=== PATIENT | female | born 1950 | race Caucasian/White ===

== ENCOUNTER 2018-12-15 01:11 | Emergency (ER) | payer MEDICARE, OTHER ==
[~2018-12-15] VITALS: Ht 160 cm; Wt 65.5 kg
--- NOTE | 2018-12-15 01:51 | NUR ---
DAUGHTERS GETTING HER UNDRESSED AND GOWNED AND TAKING OFF HER BANDAGES. DAUGHTER SAID THAT THE BOTTOM OF THE DRESS SHE HAS ON SMELLS LIKE TOILET WATER AND IS THINKING THAT SHE HAD DONE THAT BEFORE THEY LEFT [facility].
--- NOTE | 2018-12-15 03:37 | NUR ---
PT IS LYING IN THE BED AND DAUGHTER, FARIDEH, AT BEDSIDE. AWAITING ER MD.
[2018-12-15] MEDS ORDERED: SULF1TAB48 PO (03:58)
[2018-12-15] MEDS ORDERED: sulfamethoxazole/trimethoprim DS (800/160mg) tablet PO ONE (04:00)
[2018-12-15] MEDS ORDERED: naproxen 500mg tablet PO ONE (04:10)
--- NOTE | 2018-12-15 05:01 | NUR ---
PT WITH BP 171/97, GIVEN BACRTUM AND NAPROXIN. PTS WOUNDS CLEANED AND REDRESSED BY DAUGHTER. LABS DRAWN AND STRAIGHT CATHED. PT COOPERATIVE WITH ALL PROCEDURES THUS FAR.
[2018-12-15 05:08] VITALS: BP 177/93
[2018-12-15 05:14] LABS: BASOPHILS # (AUTO) 0.1 X10'3 (0-0.2); EOSINOPHILS # (AUTO) 0.4 X10'3 (0-0.9); EOSINOPHILS % (AUTO) 4.6 % (0-6); HEMATOCRIT 42.1 % (35.0-45.0); HEMOGLOBIN 14.1 g/dl (12.0-16.0); LYMPHOCYTES # (AUTO) 2.1 X10'3 (1.1-4.8); LYMPHOCYTES % (AUTO) 23.3 % (21-51); MEAN CORPUSCULAR HEMOGLOBIN 28.7 PG (27.0-31.0); MEAN CORPUSCULAR HGB CONC 33.5 g/dL (33.0-36.5); MEAN CORPUSCULAR VOLUME 85.7 FL (78-98); MEAN PLATELET VOLUME 8.3 FL (7.4-10.4); MONOCYTES # (AUTO) 0.8 X10'3 (0-0.9); MONOCYTES % (AUTO) 8.4 % (2-12); NEUTROPHILS # (AUTO) 5.6 X10'3 (1.8-7.7); NEUTROPHILS % (AUTO) 62.7 % (42-75); PLATELET COUNT 586 X10'3 (140-440); RED BLOOD COUNT 4.92 X10'6 (4.20-5.60); RED CELL DISTRIBUTION WIDTH 24.6 % (11.5-14.5); WHITE BLOOD COUNT 8.9 X10'3 (4.5-11.0)
[2018-12-15 05:14] LABS: CLARITY,URINE CLEAR (Clear); COLOR,URINE YELLOW (Yellow); GLUCOSE, URINE NEGATIVE (Neg); KETONES,URINE NEGATIVE (Neg); LEUKOCYTE ESTERASE ,URINE NEGATIVE (Neg); NITRITES, URINE NEGATIVE (Neg); OCCULT BLOOD,URINE NEGATIVE (Neg); PROTEIN,URINE NEGATIVE (Neg); UROBILINOGEN,URINE 0.2 E.U/dL (0.2-1.0)
[2018-12-15 05:16] LABS: UA COLLECTION TYPE STRAIGHT CATH
[2018-12-15 05:24] LABS: URINE AMPHETAMINE SCREEN NEGATIVE (Neg); URINE BARBITUATE SCREEN NEGATIVE (Neg); URINE BENZODIAZEPINES SCREEN NEGATIVE (Neg); URINE CANNABINOID SCREEN POSITIVE (Neg); URINE COCAINE SCREEN NEGATIVE (Neg); URINE METHADONE SCREEN NEGATIVE (Neg); URINE OPIATE SCREEN NEGATIVE (Neg); URINE PHENCYCLIDINE SCREEN NEGATIVE (Neg)
[2018-12-15 05:26] LABS: AMMONIA < 10 UMOL/L (11-32)
[2018-12-15 05:29] LABS: LACTIC SEPSIS 1.9 MMOL/L (0.4-2.0)
[2018-12-15 05:38] LABS: ALANINE AMINOTRANSFERASE 26 U/L (12-78); ALBUMIN 3.8 G/DL (3.4-5.0); ALBUMIN/GLOBULIN RATIO 1.1 (1.1-1.5); ALKALINE PHOSPHATASE 104 IU/L (46-116); ANION GAP 11 (8-16); ASPARTATE AMINO TRANSFERASE 24 U/L (10-37); BILIRUBIN,TOTAL 0.5 MG/DL (0.1-1.0); BLOOD UREA NITROGEN 25 MG/DL (7-18); BUN/CREATININE RATIO 29.8 (6.6-38.0); CALCIUM 9.9 MG/DL (8.5-10.1); CHLORIDE 105 MMOL/L (99-107); CREATININE 0.84 MG/DL (0.40-0.90); ETHANOL < 0.010 GM/DL (0.0-0.010); GLUCOSE 96 MG/DL (70-104); POTASSIUM 3.7 MMOL/L (3.5-5.1); SODIUM 145 MMOL/L (135-145); TOTAL CARBON DIOXIDE 29.4 MMOL/L (24-32); TOTAL PROTEIN 7.4 G/DL (6.4-8.2); eGFR 67 ML/MIN
[2018-12-15 07:31] LABS: ANISOCYTOSIS 3+; PLATELET ESTIMATE INCREASED
[2018-12-15 07:32] LABS: ELLIPTOCYTES 1+; LARGE PLATELETS FEW; SCHISTOCYTES FEW
[2018-12-15 07:33] LABS: BURR CELLS FEW
== END 2018-12-15 05:56 | disposition home or self-care (01) ==
LOC: ER 01:12
DX: L97.929 Non-pressure chronic ulcer of unspecified part of left lower leg with unspecified severity (principal); L97.919 Non-pressure chronic ulcer of unspecified part of right lower leg with unspecified severity; L03.116 Cellulitis of left lower limb; F07.0 Personality change due to known physiological condition; F12.90 Cannabis use, unspecified, uncomplicated; Z87.891 Personal history of nicotine dependence; Z88.8 Allergy status to other drugs, medicaments and biological substances
CPT/HCPCS: 36415; 80053; 80305; 80320; 81003; 82140; 83605; 85025; 87040; 99284; P9612

== ENCOUNTER 2019-05-03 12:17 | Emergency (ER) | payer MEDICARE, OTHER ==
[~2019-05-03] VITALS: Ht 160 cm; Wt 65.9 kg
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
[2019-05-03 12:57] LABS: BASOPHILS # (AUTO) 0.1 X10'3 (0-0.2); BASOPHILS % (AUTO) 1.1 % (0-1); EOSINOPHILS # (AUTO) 0.3 X10'3 (0-0.9); EOSINOPHILS % (AUTO) 4.4 % (0-6); HEMOGLOBIN 13.8 g/dl (12.0-16.0); LYMPHOCYTES # (AUTO) 1.8 X10'3 (1.1-4.8); MEAN CORPUSCULAR HEMOGLOBIN 27.8 PG (27.0-31.0); MEAN CORPUSCULAR HGB CONC 33.7 g/dL (33.0-36.5); MEAN CORPUSCULAR VOLUME 82.6 FL (78-98); MONOCYTES # (AUTO) 0.6 X10'3 (0-0.9); MONOCYTES % (AUTO) 8.2 % (2-12); NEUTROPHILS # (AUTO) 4.4 X10'3 (1.8-7.7); NEUTROPHILS % (AUTO) 61.3 % (42-75); PLATELET COUNT 429 X10'3 (140-440); RED BLOOD COUNT 4.97 X10'6 (4.20-5.60); RED CELL DISTRIBUTION WIDTH 26.6 % (11.5-14.5); WHITE BLOOD COUNT 7.2 X10'3 (4.5-11.0)
--- NOTE | 2019-05-03 13:00 | NUR ---
Patient is uncooperative with the admission process. Refuses to answer any questions about herself or her medical history. This information will be passed on to the aerospace quality engineer.
[2019-05-03 13:11] LABS: URINE AMPHETAMINE SCREEN NEGATIVE (Neg); URINE BARBITUATE SCREEN NEGATIVE (Neg); URINE BENZODIAZEPINES SCREEN NEGATIVE (Neg); URINE CANNABINOID SCREEN NEGATIVE (Neg); URINE COCAINE SCREEN NEGATIVE (Neg); URINE METHADONE SCREEN NEGATIVE (Neg); URINE OPIATE SCREEN NEGATIVE (Neg); URINE PHENCYCLIDINE SCREEN NEGATIVE (Neg)
[2019-05-03 13:18] LABS: ALANINE AMINOTRANSFERASE 33 U/L (12-78); ALBUMIN 4.8 G/DL (3.4-5.0); ALBUMIN/GLOBULIN RATIO 1.4 (1.1-1.5); ALKALINE PHOSPHATASE 78 IU/L (46-116); ANION GAP 11 (8-16); ASPARTATE AMINO TRANSFERASE 23 U/L (10-37); BILIRUBIN,TOTAL 1.5 MG/DL (0.1-1.0); BLOOD UREA NITROGEN 14 MG/DL (7-18); BUN/CREATININE RATIO 17.5 (6.6-38.0); CALCIUM 9.7 MG/DL (8.5-10.1); CHLORIDE 110 MMOL/L (99-107); GLUCOSE 92 MG/DL (70-104); SODIUM 146 MMOL/L (135-145); TOTAL CARBON DIOXIDE 24.9 MMOL/L (24-32); TOTAL PROTEIN 8.3 G/DL (6.4-8.2); eGFR 71 ML/MIN
[2019-05-03 13:25] LABS: CLARITY,URINE CLOUDY (Clear); COLOR,URINE YELLOW (Yellow); GLUCOSE, URINE NEGATIVE (Neg); KETONES,URINE NEGATIVE (Neg); LEUKOCYTE ESTERASE ,URINE SMALL (Neg); NITRITES, URINE POSITIVE (Neg); OCCULT BLOOD,URINE NEGATIVE (Neg); PH,URINE 7.5 (4.8-8.0); PROTEIN,URINE NEGATIVE (Neg)
[2019-05-03 13:25] LABS: POTASSIUM 2.8 MMOL/L (3.5-5.1)
[2019-05-03 13:27] LABS: UA COLLECTION TYPE CLN CATCH MIDSTREAM
[2019-05-03 13:28] LABS: HYALINE CASTS 0-3 /LPF (NEGATIVE); SQUAMOUS EPITHELIAL CELL,UR FEW /LPF (FEW)
[2019-05-03 13:31] LABS: BACTERIA,URINE 4+ /HPF (Neg); RBC,URINE 0-2 /HPF (0-2)
[2019-05-03 13:32] LABS: ANISOCYTOSIS 3+; ELLIPTOCYTES FEW; PLATELET ESTIMATE NORMAL; TEAR DROP CELLS FEW
[2019-05-03 13:33] LABS: SCHISTOCYTES FEW
[2019-05-03 13:45] LABS: ETHANOL < 0.010 GM/DL (0.0-0.010)
[2019-05-03] MEDS ORDERED: potassium Cl 20 mEq SR tablet PO SCH (13:45)
[2019-05-03] MEDS ORDERED: ondansetron 4mg rapidly disintigrating tab PO ONE (13:45)
[2019-05-03] MEDS ORDERED: nitrofuran/nitrofuran macrocrysal 100 MG capsule PO SCH (13:45)
[2019-05-03] MEDS ORDERED: normal saline 1000ML IV soln IVB ONE (15:10)
[2019-05-03] MEDS ORDERED: magnesium 2GM in 50ml NS 50 ML IV ONE (15:10)
[2019-05-03] MEDS ORDERED: potassium Cl 10 mEq/100mL bag IV SCH (15:10)
[2019-05-03] MEDS ORDERED: CefTRIAXone 2gm/D5W 50ml 50 ML IV ONE (15:10)
[2019-05-03] MEDS ORDERED: potassium Cl 20 mEq SR tablet PO STA (15:25)
[2019-05-03] MEDS ORDERED: nitrofuran/nitrofuran macrocrysal 100 MG capsule PO ONE (15:25)
--- NOTE | 2019-05-03 15:30 | NUR ---
Lab results revealed patient has a critical potassium level and a urinary tract infection. Patient offered oral medications to address these values. She refused to take her medications and demanded an IV. Dr. Esquivel notified. IV orders given. Patient then refused to have an IV inserted and demanded to have her pills. Pills offered once again and patient took them without event.
[2019-05-03] MEDS ORDERED: TIOT4MIS3 PO (16:11)
[2019-05-03] MEDS ORDERED: PRED5DRO23 RIGHTEYE (16:11)
[2019-05-03] MEDS ORDERED: LORA1TAB PO (16:11)
[2019-05-03] MEDS ORDERED: DORZ10DR10 RIGHTEYE (16:11)
[2019-05-03] MEDS ORDERED: DOCU-148 PO (16:11)
[2019-05-03] MEDS ORDERED: AMLO2.5T2 PO (16:11)
[2019-05-03] MEDS ORDERED: HYDR-4383 PO (16:11)
[2019-05-03] MEDS ORDERED: BUDE0.5A11 NEB (16:11)
[2019-05-03] MEDS ORDERED: MAGN400C PO (16:11)
[2019-05-03] MEDS ORDERED: ACET250T3 PO (16:11)
[2019-05-03] MEDS ORDERED: TRAZ-251 PO (16:11)
[2019-05-03] MEDS ORDERED: BRIM5DRO16 EACHEYE (16:11)
[2019-05-03] MEDS ORDERED: OSC500T PO (16:11)
[2019-05-03] MEDS ORDERED: LORazepam 2 mg/ml vial IM ONE (17:10)
[2019-05-03] MEDS: nicotine 14mg patch - 24hr TD ONE ×2 (17:17→20:30)
[2019-05-03] MEDS ORDERED: LORazepam 1 MG tablet PO PRN (17:20)
[2019-05-03] MEDS ORDERED: HYDROcodone/acetaminophen 5mg/325mg tablet PO PRN (17:20)
--- NOTE | 2019-05-03 17:30 | NUR ---
Got out of bed with the use of her walker, stating her son was calling her from behind the wall. Then began walking in the direction of the exit doors, stating she needed "fresh air and sunshine." Becoming increasingly agitated when staff attempted to redirect her to her bed, yelling " I need a cigarette." Made comfortable in bed. Dr. Esquivel consulted. Orders given for Nicotine patch and Ativan 1 mg. IM Medications given as ordered without event.
--- NOTE | 2019-05-03 17:37 | NUR ---
PT'S COLD MEAT CHEF AT [facility] CALLED FOR PT UPDATE. INFORMED KAIWHAKAHAERE THAT PT IS SAFE, HAS BEEN GIVEN ABX FOR A UTI AND MEDICATION FOR A LOW K+. INFORMED THEM THAT [facility] HAS NOT BEEN TO SEE HER OF YET AND THEY WILL DETERMINE IF PT'S 5150 WILL BE UP HELD OR DISCHARGED BACK TO HER HOME FACILITY. SHOULD PT BE DC ANY TIME SOON, PLEASE CALL HANNY, DISTRICT CAPTAIN OF [employer]; AT
--- NOTE | 2019-05-03 20:47 | NUR ---
found phone number for son "Fredo" on sticky note [phone]
[2019-05-03] MEDS: budesonide 0.5mg/2ml UD nebule IH SCH (20:54)
--- NOTE | 2019-05-03 20:54 | NUR ---
RT at bedside to administer treatment, pt said "can you people just leave me alone" but eventually complied with sitting up in bed.
[2019-05-03] MEDS: dorzolamide/timolol (Cosopt) ophthalmic drops 10ml bottle RIGHTEYE SCH (21:00)
[2019-05-03] MEDS: traZODone 50mg tablet PO SCH (21:00)
[2019-05-03] MEDS: prednisoLONE acetate 1% ophth susp 5ml RIGHTEYE SCH (21:00)
[2019-05-03] MEDS: acetaZOLAMIDE 250mg tablet PO SCH (21:00)
[2019-05-03] MEDS: docusate sod 100mg capsule PO SCH (21:00)
[2019-05-03] MEDS: brimonidine 0.2% 5 ML ophthalmic drops EACHEYE SCH (21:00)
--- NOTE | 2019-05-03 23:23 | NUR ---
pt sleeping on back. resp even/unlabored
--- NOTE | 2019-05-04 02:24 | NUR ---
pt asked for new pants and underwear, she changed on her own. pt sitting up in bed
--- NOTE | 2019-05-04 05:23 | NUR ---
pt used bedside commode independently, however slowly. returned to resting in bed
[2019-05-04] MEDS: magnesium oxide 400mg tablet PO SCH (08:00)
[2019-05-04] MEDS: amLODIPine 5mg tablet PO SCH (08:00)
[2019-05-04] MEDS: dorzolamide/timolol (Cosopt) ophthalmic drops 10ml bottle RIGHTEYE SCH ×3 (08:00→21:00)
[2019-05-04] MEDS: TIOTROPIUM IH SCH ×2 (08:00→10:38)
[2019-05-04] MEDS: brimonidine 0.2% 5 ML ophthalmic drops EACHEYE SCH ×3 (08:00→21:00)
[2019-05-04] MEDS: prednisoLONE acetate 1% ophth susp 5ml RIGHTEYE SCH ×3 (08:00→21:00)
[2019-05-04] MEDS: calcium carbonate 500mg tablet PO SCH (08:00)
[2019-05-04] MEDS: acetaZOLAMIDE 250mg tablet PO SCH ×3 (08:00→21:00)
[2019-05-04] MEDS: [UNRECOGNIZED DRUG - OTHER] IH SCH ×2 (08:00→10:38)
--- NOTE | 2019-05-04 08:03 | NUR ---
patients current blood pressure is 124/78 HR 78, She is refusing all of her medication.
--- NOTE | 2019-05-04 08:08 | NUR ---
Fouzia sepulveda in [facility] - 05/04/19 at 0811 by ERASTO retook blood sugar 129 after dextrose 25 ml IV
--- NOTE | 2019-05-04 08:45 | NUR ---
Patient in bed. family member at bedside
[2019-05-04] MEDS: budesonide 0.5mg/2ml UD nebule IH SCH ×2 (10:37→19:09)
--- NOTE | 2019-05-04 10:57 | NUR ---
patient still refusing to eat; refused RT treatment also, resting in bed
--- NOTE | 2019-05-04 12:08 | NUR ---
patient sleeping. in no distress
--- NOTE | 2019-05-04 14:03 | NUR ---
Patient up walking to the restroom. in no distress. refusing to eat lunch
--- NOTE | 2019-05-04 14:19 | NUR ---
Patient tried leaving. Security was able to get her back into her bed.
--- NOTE | 2019-05-04 15:56 | NUR ---
Patient resting in bed. in no distress
--- NOTE | 2019-05-04 17:11 | NUR ---
patient up and wondering, redirected to her room, wanting to leave
--- NOTE | 2019-05-04 17:53 | NUR ---
norco given for back pain.
--- NOTE | 2019-05-04 18:30 | NUR ---
RECEIVED REPORT FROM VISHNU BOATENG PATIENT WALKED TO THE BATHROOM AND BACK TO BED.
[2019-05-04] MEDS ORDERED: budesonide 0.5mg/2ml UD nebule IH PRN (19:15)
[2019-05-04] MEDS ORDERED: nicotine 14mg patch - 24hr TD ONE (19:15)
--- NOTE | 2019-05-04 20:00 | NUR ---
PATIENT REFUSED TO TAKE ALL MEDICATIONS.
[2019-05-04] MEDS: traZODone 50mg tablet PO SCH (21:00)
[2019-05-04] MEDS: docusate sod 100mg capsule PO SCH (21:00)
--- NOTE | 2019-05-04 21:15 | NUR ---
PATIENT UP TO THE BATHROOM.
--- NOTE | 2019-05-04 23:00 | NUR ---
PATIENT RESTING IN BED WITH EYES CLOSED.
--- NOTE | 2019-05-05 00:30 | NUR ---
PATIENT ASSISTED TO THE BATHROOM AND NACK TO BED.
--- NOTE | 2019-05-05 02:00 | NUR ---
PATIENT RESTING IN BED WITH EYES CLOSED.
--- NOTE | 2019-05-05 03:30 | NUR ---
PATIENT UP TO THE BATHROOM AND BACK TO BED.
--- NOTE | 2019-05-05 05:20 | NUR ---
RESTING IN BED WITH EYES CLOSED.
[2019-05-05] MEDS: brimonidine 0.2% 5 ML ophthalmic drops EACHEYE SCH ×3 (07:53→20:31)
[2019-05-05] MEDS: acetaZOLAMIDE 250mg tablet PO SCH ×3 (07:53→21:00)
[2019-05-05] MEDS: magnesium oxide 400mg tablet PO SCH (07:54)
[2019-05-05] MEDS: amLODIPine 5mg tablet PO SCH (07:54)
[2019-05-05] MEDS: calcium carbonate 500mg tablet PO SCH (07:56)
[2019-05-05] MEDS: dorzolamide/timolol (Cosopt) ophthalmic drops 10ml bottle RIGHTEYE SCH ×3 (07:56→20:31)
[2019-05-05] MEDS: prednisoLONE acetate 1% ophth susp 5ml RIGHTEYE SCH ×3 (07:56→20:31)
--- NOTE | 2019-05-05 13:21 | NUR ---
GIVING NURSE A LUNCH BREAK, PT. IS SLEEPING IN BED AND IS IN NO DISTRESS. WILL CONTINUE TO MONITOR
--- NOTE | 2019-05-05 16:20 | NUR ---
ASSISTED CALLED AND SAID THEY WILL NOT BE ABLE TO TAKE THE PATIENT BACK DUE TO LEVEL OF CARE
--- NOTE | 2019-05-05 17:33 | NUR ---
PT IS STILL REFUSING HER MEDS BUT SHE ATE SOME SNACKS FOR THE FIRST TIME SINCE SHE HAS BEEN HERE
--- NOTE | 2019-05-05 19:00 | NUR ---
Pt received lying in her bed. Friendly upon approach. Pt up to bathroom on her own. Pt ambulating to and from bathroom (over 20yards) without assitance or confusion.
[2019-05-05] MEDS: cephalexin 250mg capsule PO SCH (20:30)
[2019-05-05] MEDS: traZODone 50mg tablet PO SCH (21:00)
[2019-05-05] MEDS: docusate sod 100mg capsule PO SCH (21:00)
--- NOTE | 2019-05-05 21:00 | NUR ---
Pt took some medications, but began to feel real nervous and said its hard for her to trust people and did not take her trazodone, diamox or colace.
--- NOTE | 2019-05-05 23:00 | NUR ---
Pt resting quietly in bed without complaints.
--- NOTE | 2019-05-06 01:00 | NUR ---
Pt up to bathroom without assistance x 1. Pt appears alert and oriented without signs of confusion. Pt returned to bed after using the bathroom, ate some yogurt and returned to trying to sleep.
--- NOTE | 2019-05-06 02:00 | NUR ---
Vandana Ortega KEYBOARD INSTRUMENT TUNER from [facility] ([phone]) called and was concerned that pt had dementia and that she was total care. This nurse clarified that pt was ambulating to the bathroom on her own and feeding herself and that she appeared; through, the limited interaction due to sleep, that she was oriented. She stated she would have to check with either Dr. Landaverde or Dr. Barba in the am regarding admitting this patient.
--- NOTE | 2019-05-06 03:00 | NUR ---
Pt sleeping peacefully without complaints.
--- NOTE | 2019-05-06 05:00 | NUR ---
Pt up x 1 to the bathroom. Pt ambulating slowly by herself to and from bathroom across the unit.
[2019-05-06] MEDS: TIOTROPIUM IH SCH (08:00)
[2019-05-06] MEDS: [UNRECOGNIZED DRUG - OTHER] IH SCH (08:00)
[2019-05-06] MEDS: amLODIPine 5mg tablet PO SCH (08:35)
[2019-05-06] MEDS: magnesium oxide 400mg tablet PO SCH (08:35)
[2019-05-06] MEDS: cephalexin 250mg capsule PO SCH (08:35)
[2019-05-06] MEDS: acetaZOLAMIDE 250mg tablet PO SCH (08:35)
[2019-05-06] MEDS: calcium carbonate 500mg tablet PO SCH (08:35)
[2019-05-06] MEDS: prednisoLONE acetate 1% ophth susp 5ml RIGHTEYE SCH (08:38)
[2019-05-06] MEDS: brimonidine 0.2% 5 ML ophthalmic drops EACHEYE SCH (08:39)
[2019-05-06] MEDS: dorzolamide/timolol (Cosopt) ophthalmic drops 10ml bottle RIGHTEYE SCH (08:40)
[2019-05-06] MEDS ORDERED: potassium Cl 20 mEq SR tablet PO STA ×2 (08:41→11:16)
--- NOTE | 2019-05-06 09:02 | NUR ---
PT TOOK MORNING MEDS WITHOUT INCIDENT. REFUSED BREAKFAST. WHEN POTASSIUM WAS VERIFIED BT REFUSED ANY ADDITIONAL MEDS OR FOOD. STATED NOT HUNGRY
--- NOTE | 2019-05-06 10:09 | NUR ---
Patient moved to bed 23 at this time with no signs of distress noted, cooperative with care, resting in bed.
--- NOTE | 2019-05-06 11:10 | NUR ---
June from [facility] at bedside to assess patient. Patient states she wants to "go home" and is willing to cooperate with eating and taking her medication. June made aware by Sandra cardoso that patient refused breakfast but took her morning meds and refused potassium.
--- NOTE | 2019-05-06 11:36 | NUR ---
Patient refused potassium at this time, states "I don't want to take it and you can't make me", patient educated on potassium intake and its mechinism of action but still refuses to take medication.
[2019-05-06] MEDS ORDERED: CEPH500C5 PO (11:43)
--- NOTE | 2019-05-06 11:48 | NUR ---
Spoke with nAh at [facility] at this time, per Anh she will contact [facility] transport to pharmacy picking tech patient.
--- NOTE | 2019-05-06 11:55 | NUR ---
June [facility] informed patient that Anh from [employer] is arranging transportation, patient verbalized understanding, states she will take her medication, and eat her meals.
[2019-05-06 12:45] VITALS: BP 137/67
== END 2019-05-06 12:54 ==
LOC: ER 12:18
DX: N39.0 Urinary tract infection, site not specified (principal); E87.6 Hypokalemia; F12.90 Cannabis use, unspecified, uncomplicated; Z98.890 Other specified postprocedural states; Z88.8 Allergy status to other drugs, medicaments and biological substances; Z79.899 Other long term (current) drug therapy
CPT/HCPCS: 36415; 80053; 80305; 80320; 81001; 84132; 84443; 85025; 87077; 87088; 87186; 94640; 94760; 96372; 99285; J2060; J2405; J7626

== ENCOUNTER 2019-05-19 10:53 | Emergency (ER) | payer MEDICARE, OTHER ==
[~2019-05-19] VITALS: Ht 170.2 cm; Wt 80.0 kg
[~2019-05-19 10:53] MED LIST: ACET250T3 PO; AMLO2.5T2 PO; BRIM5DRO16 EACHEYE; BUDE0.5A11 NEB; DOCU-148 PO; DORZ10DR10 RIGHTEYE; HYDR-4383 PO; LORA1TAB PO; MAGN400C PO; OSC500T PO; PRED5DRO23 RIGHTEYE; TIOT4MIS3 PO; TRAZ-251 PO
[2019-05-19 11:08] VITALS: BP 116/61
[2019-05-19] MEDS: potassium Cl 20 mEq SR tablet PO STA ×2 (11:11→11:30)
--- NOTE | 2019-05-19 11:20 | NUR ---
pt refusing iv, but agreed to po potssium
--- NOTE | 2019-05-19 11:26 | NUR ---
spoke with tuan best at [facility]. informed him we will be treating with po potassium and then discharge. tuan stated, [facility] to [facility] for tx. pt addresss: [address] [place] [address]
--- NOTE | 2019-05-19 11:47 | NUR ---
informed mayi that pt now is refusing the po potassium
--- NOTE | 2019-05-19 11:51 | NUR ---
mayi ask to call caregiver to come in and get more info on pt. spoke with tuan, and roel [facility]ide caregiver will be coming in. tuan also mentioned that pt has been in our overflow area multiple times
--- NOTE | 2019-05-19 12:04 | NUR ---
PATIENT CONTINUES TO REFUSE POTASSIUM ORDER (SEE EMAR). TASNEEM EPSTEIN MADE AWARE.
== END 2019-05-19 12:32 | disposition home or self-care (01) ==
LOC: ER 10:53
DX: G30.9 Alzheimer's disease, unspecified (principal); F02.80 Dementia in other diseases classified elsewhere, unspecified severity, without behavioral disturbance, psychotic disturbance, mood disturbance, and anxiety; E87.6 Hypokalemia; F12.90 Cannabis use, unspecified, uncomplicated; Z98.890 Other specified postprocedural states; Z88.8 Allergy status to other drugs, medicaments and biological substances; Z79.899 Other long term (current) drug therapy
CPT/HCPCS: 99283

== ENCOUNTER 2019-05-28 13:43 | Emergency (ER) | payer MEDICARE, OTHER ==
[~2019-05-28] VITALS: Ht 165.1 cm; Wt 56.8 kg
--- NOTE | 2019-05-28 14:03 | NUR ---
ON ARRIVAL PT CONFUSED AND UNCOOPERATIVE. UNABLET O OBTAIN ACCURATE MED HX AT THIS TIME.
[2019-05-28] MEDS ORDERED: potassium Cl 20 mEq SR tablet PO ONE (14:05)
[2019-05-28] MEDS ORDERED: magnesium oxide 400mg tablet PO ONE (14:05)
--- NOTE | 2019-05-28 14:09 | NUR ---
[facility] CALL[facility] TO WHAT THE PT'S K+ LEVEL WAS THAT BROUGHT THE PT TO THE ER. PER [facility], A TELE MEDICINE MD CALLED THE PT'S RESIDENTAL FACILITY AND TOLD THEM THAT THE PT HAD A VERY LOW K+ AND THAT SHE NEEDED TO GO TO THE HOSPITAL FOR IV K+. PER THE NOTES THAT WERE READ PT HAD A K+ OF 2.7 AND THE TELE MED MD WAS GOING TO ORDER A PO K+ PRIOR TO TRANSFER TO THE ER. SPOKE WITH THE DIRECTOR OF [facility], PT IS NOT CONSERVED AT THIS TIME. THE DIRECTOR WAS NOTIFIED THAT THE PT IS REFUSING ALL MEDICATIONS AND THAT AT THIS TIME DUE TO HER REFUSING CARE THAT PT WOULD BE SENT BACK TO THEIR CARE. PER THE FACILITY PT CAN BE TRANSPORTED VIA [facility] OR [facility]. PT'S RN WAS NOTIFIED OF THE CONVERSATIONS, DR MANUEL TO BE NOTIFIED
--- NOTE | 2019-05-28 14:09 | NUR ---
PT REFUSED ANY MEDICATION. PT REFUSES TO STAY IN BED AND KEEPS GETTING UP TO LEAVE. PT IS NOT ABLE TO VERBALIZE THE YEAR OR PRESIDENT. MD MANUEL IN ROOM. PT PLACED IN MORTGAGE FIELD INSPECTOR SOCKS SINCE SHE WILL NOT STAY INBED.
--- NOTE | 2019-05-28 14:17 | NUR ---
pt remains uncooperative. pt provided with warm blanket and allowed bed rail to come up. pt has ripped off all monitoring.
[2019-05-28] MEDS ORDERED: POTA20TA19 PO (14:41)
[2019-05-28] MEDS ORDERED: MAGN400C PO (14:41)
--- NOTE | 2019-05-28 14:55 | NUR ---
spoke with Daughter Divya who lives in [place] about picking up mother. stated she is disabled and will get her caregiver to come and olive picker mother juliet. estimated time is 2 hours. stated will try to hurry Addendum: 05/28/19 at 1456 by AMBER note by clari
--- NOTE | 2019-05-28 15:10 | NUR ---
SISTER JUANA SARMIENTO. WILL BE HERE IN 1-2 HOURS TO TUTOR COORDINATOR PT.
[2019-05-28] MEDS ORDERED: potassium Cl 10 mEq/100mL bag IV ONE ×2 (15:25)
[2019-05-28] MEDS ORDERED: diphenhydrAMINE 50 mg/ml inj IM ONE (15:25)
[2019-05-28] MEDS ORDERED: magnesium 2GM in 50ml NS 50 ML IV ONE (15:25)
[2019-05-28] MEDS ORDERED: haloperidol lactate 5mg/ml inj IM ONE ×2 (15:25→16:50)
[2019-05-28] MEDS ORDERED: LORazepam 2 mg/ml vial IM ONE (15:25)
--- NOTE | 2019-05-28 15:54 | NUR ---
SPOKE WITH DAUGHTER WHO AGREES ON PLANOF TREATMENT FOR "CODE GRANDMA"
--- NOTE | 2019-05-28 16:36 | NUR ---
AFTER MEDICATION TX, PT BACK IN BED AND ALLOWED US TO HOOK HER BACK UP TO MONITORING. TECH AT BEDSIDE TO ASSIST PT.
[2019-05-28] MEDS ORDERED: POTASSIUM BICARB 20meq eff tab 20 MEQ TABLET.EFF PO ONE (16:49)
[2019-05-28 18:06] LABS: ALANINE AMINOTRANSFERASE 19 U/L (12-78); ALBUMIN 3.7 G/DL (3.4-5.0); ALBUMIN/GLOBULIN RATIO 1.4 (1.1-1.5); ALKALINE PHOSPHATASE 52 IU/L (46-116); ANION GAP 9 (8-16); ASPARTATE AMINO TRANSFERASE 17 U/L (10-37); BILIRUBIN,TOTAL 0.8 MG/DL (0.1-1.0); BLOOD UREA NITROGEN 14 MG/DL (7-18); BUN/CREATININE RATIO 15.4 (6.6-38.0); CALCIUM 9.1 MG/DL (8.5-10.1); CHLORIDE 111 MMOL/L (99-107); CREATININE 0.91 MG/DL (0.40-0.90); GLUCOSE 91 MG/DL (70-104); POTASSIUM 3.3 MMOL/L (3.5-5.1); SODIUM 147 MMOL/L (135-145); TOTAL PROTEIN 6.4 G/DL (6.4-8.2); eGFR 61 ML/MIN
--- NOTE | 2019-05-28 18:26 | NUR ---
PT CONTINUES TO REMOVE MONITORING.
--- NOTE | 2019-05-28 18:49 | NUR ---
PT WAS ABLE TO SIT UP, [facility]
--- NOTE | 2019-05-28 19:12 | NUR ---
CALLED ALMA ROSA AT 19:01 ETA 30-45 MINS
[2019-05-28 19:35] VITALS: BP 134/87
[2019-05-28] MEDS ORDERED: POTASSIUM BICARB 20meq eff tab 20 MEQ TABLET.EFF PO SCH (21:00)
== END 2019-05-28 19:39 | disposition home or self-care (01) ==
LOC: ER 13:44
DX: E87.6 Hypokalemia (principal); R00.1 Bradycardia, unspecified; F12.90 Cannabis use, unspecified, uncomplicated; F17.200 Nicotine dependence, unspecified, uncomplicated; Z98.890 Other specified postprocedural states; Z88.8 Allergy status to other drugs, medicaments and biological substances; Z88.6 Allergy status to analgesic agent; Z79.899 Other long term (current) drug therapy
CPT/HCPCS: 36415; 80053; 83735; 93005; 96365; 96366; 96372; 96375; 99284; J1200; J1630; J2060; J3475; J3480

== ENCOUNTER 2019-06-10 15:03 | Emergency (ER) | payer MEDICARE, OTHER ==
[~2019-06-10] VITALS: Ht 160 cm; Wt 60.0 kg
[~2019-06-10 15:03] MED LIST changes: +POTA20TA19 PO
[2019-06-10] MEDS ORDERED: LORazepam 2 mg/ml vial IM ONE (15:50)
--- NOTE | 2019-06-10 15:50 | NUR ---
PATIENT LEAVING HER ROOM AND ASKED TO RETURN TO HER ROOM: PATIENT STATED "FUCK YOU, I JUST WANT TO GO HOME" SECURITY AND TECH CHERYL ASSISTED PATIENT BACK TO HER BED.
[2019-06-10 15:59] LABS: CLARITY,URINE CLOUDY (Clear); COLOR,URINE AMBER (Yellow); GLUCOSE, URINE NEGATIVE (Neg); KETONES,URINE TRACE mg/dl (Neg); LEUKOCYTE ESTERASE ,URINE NEGATIVE (Neg); NITRITES, URINE NEGATIVE (Neg); OCCULT BLOOD,URINE NEGATIVE (Neg); PROTEIN,URINE 30 mg/dl (Neg); UROBILINOGEN,URINE 0.2 E.U/dL (0.2-1.0)
[2019-06-10 16:01] LABS: UA COLLECTION TYPE OTHER
--- NOTE | 2019-06-10 16:06 | NUR ---
PATIENT AGAIN RIPED OFF ALL MONITORING EQUIPTMENT
[2019-06-10 16:47] LABS: MUCUS STRANDS MANY /LPF (Neg)
[2019-06-10 16:49] LABS: BACTERIA,URINE FEW /HPF (Neg); RBC,URINE 0-2 /HPF (0-2)
[2019-06-10 16:51] LABS: YEAST FEW /HPF (NEGATIVE)
[2019-06-10 16:53] LABS: CAL OXALATE CRYSTALS 1+ /HPF (NEGATIVE)
[2019-06-10 16:56] LABS: SQUAMOUS EPITHELIAL CELL,UR MANY /LPF (FEW)
[2019-06-10 16:59] LABS: TRANSITIONAL EPI CELLS,URINE FEW /HPF
--- NOTE | 2019-06-10 17:20 | NUR ---
RELIEVING RN FOR LUNCH, PT IS EATING ICE CREAM AND CHEESE, COMPLIANT WITH LAB DRAW
[2019-06-10 17:33] LABS: BASOPHILS % (AUTO) 0.8 % (0-1); EOSINOPHILS # (AUTO) 0.2 X10'3 (0-0.9); EOSINOPHILS % (AUTO) 3.5 % (0-6); HEMATOCRIT 34.4 % (35.0-45.0); HEMOGLOBIN 11.4 g/dl (12.0-16.0); LYMPHOCYTES # (AUTO) 2.3 X10'3 (1.1-4.8); MEAN CORPUSCULAR HEMOGLOBIN 28.6 PG (27.0-31.0); MEAN CORPUSCULAR VOLUME 86.5 FL (78-98); MEAN PLATELET VOLUME 7.8 FL (7.4-10.4); MONOCYTES # (AUTO) 0.5 X10'3 (0-0.9); MONOCYTES % (AUTO) 8.3 % (2-12); NEUTROPHILS # (AUTO) 3.4 X10'3 (1.8-7.7); NEUTROPHILS % (AUTO) 52.4 % (42-75); PLATELET COUNT 424 X10'3 (140-440); RED BLOOD COUNT 3.98 X10'6 (4.20-5.60); RED CELL DISTRIBUTION WIDTH 28.8 % (11.5-14.5); WHITE BLOOD COUNT 6.5 X10'3 (4.5-11.0)
--- NOTE | 2019-06-10 17:39 | NUR ---
patient ate a sandwhich, drank 240 ml whole milk, a cheese stick and ice cream
[2019-06-10 17:45] LABS: ALBUMIN/GLOBULIN RATIO 1.4 (1.1-1.5); ANION GAP 5 (8-16); ASPARTATE AMINO TRANSFERASE 18 U/L (10-37); BILIRUBIN,TOTAL 0.9 MG/DL (0.1-1.0); BLOOD UREA NITROGEN 19 MG/DL (7-18); BUN/CREATININE RATIO 17.3 (6.6-38.0); CALCIUM 10.2 MG/DL (8.5-10.1); CHLORIDE 110 MMOL/L (99-107); GLUCOSE 103 MG/DL (70-104); POTASSIUM 4.2 MMOL/L (3.5-5.1); SODIUM 146 MMOL/L (135-145); TOTAL CARBON DIOXIDE 31.5 MMOL/L (24-32); TOTAL PROTEIN 6.9 G/DL (6.4-8.2); eGFR 49 ML/MIN
[2019-06-10 17:46] LABS: ALANINE AMINOTRANSFERASE 20 U/L (12-78); ALKALINE PHOSPHATASE 54 IU/L (46-116)
--- NOTE | 2019-06-10 18:18 | NUR ---
SPOKE TO MILLIE, PATIENT'S CAREGIVER WHERE PATIENT LIVES: [facility] [phone]
--- NOTE | 2019-06-10 18:25 | NUR ---
POC DISCUSSED WITH PA
[2019-06-10 18:31] LABS: ANISOCYTOSIS 3+; PLATELET ESTIMATE NORMAL
[2019-06-10 18:36] LABS: ELLIPTOCYTES 1+
[2019-06-10 18:38] LABS: BURR CELLS FEW; SCHISTOCYTES 2+; SPHEROCYTES 1+
[2019-06-10 18:39] LABS: POLYCHROMASIA FEW; TARGET CELLS FEW
[2019-06-10] MEDS ORDERED: normal saline 1000ML IV soln IVB ONE (18:50)
[2019-06-10] MEDS ORDERED: ringers solution, lacted 1,000 ML IV ONE ×2 (18:55→21:15)
--- NOTE | 2019-06-10 20:14 | NUR ---
LAST KEFLEX THIS AM AND PER DAUGHTER: SUSAN CULTURED WOUND AND IS SUSEPTIBLE PER DAUGHTER
--- NOTE | 2019-06-10 20:27 | NUR ---
PA INFORMED OF SBP OVER 125 MMHG
--- NOTE | 2019-06-10 21:24 | NUR ---
CALLED MILLIE TO INFORM HER THAT THE PATIENT IS BEING ADMITTED
--- NOTE | 2019-06-10 21:55 | NUR ---
ORTHOSTATICS DONE PER PA FREDERICK AND RESULTS DISCUSSED. PER PA FREDERICK, PATIENT IS READY FOR DISCHARGE CALLED FACILITY [facility] AND SPOKE TO SHIVAM AND DISCUSSED DISCHARGE PLAN. PATITIENT WILL GO THERE VIA CAR A VAN
[2019-06-10 22:10] VITALS: BP 111/54
== END 2019-06-10 22:58 | disposition home or self-care (01) ==
LOC: ER 15:03
DX: R45.1 Restlessness and agitation (principal); R41.0 Disorientation, unspecified; F03.90 Unspecified dementia, unspecified severity, without behavioral disturbance, psychotic disturbance, mood disturbance, and anxiety; F12.90 Cannabis use, unspecified, uncomplicated; Z98.890 Other specified postprocedural states; Z88.8 Allergy status to other drugs, medicaments and biological substances; Z79.899 Other long term (current) drug therapy
CPT/HCPCS: 36415; 71045; 80053; 81001; 84484; 85025; 93005; 96360; 96361; 96372; 99284; J2060; J7030; J7120

== ENCOUNTER 2019-07-11 18:10 | Emergency (ER) | payer MEDICARE ==
[~2019-07-11] VITALS: Ht 165.1 cm; Wt 59.1 kg
[~2019-07-11 18:10] MED LIST changes: -POTA20TA19 PO
--- NOTE | 2019-07-11 18:48 | NUR ---
PT UP TO BATHROOM WITH ASSISTANCE AND WALKER.
[2019-07-11] MEDS ORDERED: ondansetron/PF 4mg/2ml inj IV ONE (19:05)
--- NOTE | 2019-07-11 19:09 | NUR ---
PT REFUSED PIV. MED ORDER CHANGED TO PO PER MD.
[2019-07-11] MEDS ORDERED: ondansetron 4mg rapidly disintigrating tab PO ONE (19:10)
[2019-07-11 19:25] LABS: CLARITY,URINE SLIGHTLY CLOUDY (Clear); COLOR,URINE YELLOW (Yellow); GLUCOSE, URINE NEGATIVE (Neg); KETONES,URINE 15 mg/dl (Neg); LEUKOCYTE ESTERASE ,URINE SMALL (Neg); NITRITES, URINE NEGATIVE (Neg); OCCULT BLOOD,URINE LARGE (Neg); PROTEIN,URINE NEGATIVE (Neg); UROBILINOGEN,URINE 0.2 E.U/dL (0.2-1.0)
[2019-07-11 19:26] LABS: UA COLLECTION TYPE STRAIGHT CATH
[2019-07-11 19:31] LABS: BASOPHILS # (AUTO) 0.1 X10'3 (0-0.2); BASOPHILS % (AUTO) 0.3 % (0-1); EOSINOPHILS % (AUTO) 0.2 % (0-6); HEMATOCRIT 38.1 % (35.0-45.0); HEMOGLOBIN 12.7 g/dl (12.0-16.0); LYMPHOCYTES # (AUTO) 1.4 X10'3 (1.1-4.8); LYMPHOCYTES % (AUTO) 8.8 % (21-51); MEAN CORPUSCULAR HEMOGLOBIN 29.1 PG (27.0-31.0); MEAN CORPUSCULAR HGB CONC 33.2 g/dL (33.0-36.5); MEAN CORPUSCULAR VOLUME 87.7 FL (78-98); MEAN PLATELET VOLUME 8.5 FL (7.4-10.4); MONOCYTES % (AUTO) 6.1 % (2-12); NEUTROPHILS # (AUTO) 13.3 X10'3 (1.8-7.7); NEUTROPHILS % (AUTO) 84.6 % (42-75); PLATELET COUNT 441 X10'3 (140-440); RED BLOOD COUNT 4.34 X10'6 (4.20-5.60); RED CELL DISTRIBUTION WIDTH 27.3 % (11.5-14.5); WHITE BLOOD COUNT 15.8 X10'3 (4.5-11.0)
[2019-07-11 19:36] LABS: ALANINE AMINOTRANSFERASE 46 U/L (12-78); ALBUMIN 4.5 G/DL (3.4-5.0); ALBUMIN/GLOBULIN RATIO 1.2 (1.1-1.5); ALKALINE PHOSPHATASE 68 IU/L (46-116); ANION GAP 13 (8-16); ASPARTATE AMINO TRANSFERASE 29 U/L (10-37); BILIRUBIN,TOTAL 1.4 MG/DL (0.1-1.0); BLOOD UREA NITROGEN 27 MG/DL (7-18); BUN/CREATININE RATIO 16.6 (6.6-38.0); CALCIUM 9.6 MG/DL (8.5-10.1); CHLORIDE 107 MMOL/L (99-107); CREATININE 1.63 MG/DL (0.40-0.90); GLUCOSE 123 MG/DL (70-104); LIPASE 106 U/L (73-393); POTASSIUM 3.8 MMOL/L (3.5-5.1); SODIUM 142 MMOL/L (135-145); TOTAL CARBON DIOXIDE 22.4 MMOL/L (24-32); TOTAL PROTEIN 8.2 G/DL (6.4-8.2); eGFR 31 ML/MIN
[2019-07-11 19:53] LABS: RBC,URINE 20-50 /HPF (0-2)
[2019-07-11 19:54] LABS: BACTERIA,URINE 2+ /HPF (Neg); SQUAMOUS EPITHELIAL CELL,UR NONE SEEN /LPF (FEW); WBC,URINE 0-4 /HPF (0-4)
[2019-07-11 19:55] LABS: MUCUS STRANDS NONE SEEN /LPF (Neg); TRANSITIONAL EPI CELLS,URINE FEW /HPF
[2019-07-11] MEDS ORDERED: ketorolac trometh. 30mg/ml inj. IV ONE (20:20)
[2019-07-11] MEDS ORDERED: HYDR-4384 PO (20:29)
[2019-07-11] MEDS ORDERED: CIPR-230 PO (20:29)
[2019-07-11 20:52] VITALS: BP 138/85
--- NOTE | 2019-07-11 21:31 | NUR ---
REPORT GIVEN TO [facility], REFERAL AND RX INSTRUCTIONS.
[2019-07-12 06:39] LABS: TOTAL CELLS COUNTED 100
[2019-07-12 06:40] LABS: ANISOCYTOSIS 3+; PLATELET ESTIMATE NORMAL
[2019-07-12 06:41] LABS: ELLIPTOCYTES 1+; POIKILOCYTOSIS 1+
--- NOTE | 2019-07-15 19:20 | NUR ---
CALLED AND LEFT MESSAGE FOR PT TO CALL ER CHARGE NURSE REGARDING URINE CULTURE RESULT AND NEED FOR AB MACROBID 100 MG PO BIDX 7DAYS.
--- NOTE | 2019-07-20 10:53 | NUR ---
CALLED AND ATTEMPTED TO LEAVE A MESSAGE, JUST STATIC ON THE LINE AFTER PHONE WAS DONE RINGING. I LOOKED TO SEE IF SHE WAS AN IN PATIENT, AND SHE WAS NOT.
--- NOTE | 2019-07-21 20:02 | NUR ---
SENT PATIENT A FOLLOW UP LETTER REGARDING URINE CULTURE.
== END 2019-07-11 21:32 ==
LOC: ER 18:10
DX: N13.2 Hydronephrosis with renal and ureteral calculous obstruction (principal); F03.90 Unspecified dementia, unspecified severity, without behavioral disturbance, psychotic disturbance, mood disturbance, and anxiety; Z88.8 Allergy status to other drugs, medicaments and biological substances; Z79.899 Other long term (current) drug therapy; Z88.0 Allergy status to penicillin; Z88.6 Allergy status to analgesic agent; Z86.19 Personal history of other infectious and parasitic diseases; Z98.890 Other specified postprocedural states
CPT/HCPCS: 36415; 74176; 80053; 81001; 83690; 85025; 87077; 87088; 87186; 96374; 99284; J1885